=== PATIENT | male | born 1960 | race Caucasian/White ===

== ENCOUNTER → 2017-10-13 | Outpatient (CLI) | payer MEDICARE, BC, OTHER, SELFPAY ==
[~2017-10-13] MED LIST: METHACHOLINE KIT (J7674) INH
== END ==
LOC: M CARPUL 10:11
DX: R06.02 Shortness of breath (principal); R94.2 Abnormal results of pulmonary function studies
CPT/HCPCS: J7674

== ENCOUNTER → 2018-05-07 | Outpatient (CLI) | payer MEDICARE, BC, OTHER | LOC: M SLEEP 19:24 | DX: G47.33 Obstructive sleep apnea (adult) (pediatric) (principal) | CPT/HCPCS: 95810 ==

== ENCOUNTER → 2018-06-13 | Outpatient (CLI) | payer MEDICARE, BC, OTHER ==
--- NOTE | 2018-06-15 11:24 | SLEEPCENT ---
DATE OF PROCEDURE: 06/13/2018 ORDERED BY: Dr. Gómez Nocturnal polysomnography was performed for titration of pressure therapy in this patient with obstructive sleep apnea syndrome and apnea-hypopnea index of 42.5. For testing, the patient was fit with a [employer] [place] View full face mask of medium size and 4 cm of water pressure were applied to the circuit and the lights were extinguished. 8 hours and 25 minutes of data were reviewed. There were 318 minutes of sleep identified. Sleep latency was prolonged at 45.5 minutes. Rapid eye movement (REM) latency was somewhat prolonged at 109 minutes. Sleep architecture was good with 2 REM cycles. There was a period of wake between 12:30 and 1:30, resulting in a mildly reduced sleep efficiency of 63.5%. The electrocardiogram showed a regular rhythm, possibly paced, with frequent ectopy. Average heart rate was 80 beats per minute. Electroencephalogram (EEG) showed normal waveforms for awake and sleep. Respiratory events were fully palliated with C-PAP at a pressure of +5. There was minimal activity in the limb leads and limb movement arousal index was 4.5. IMPRESSION: Obstructive sleep apnea syndrome (G47.33). RECOMMENDATION: Nightly use of pressure therapy at 5 cm of water.
== END ==
LOC: M SLEEP 20:00
PROVIDERS: ATTEND Internal Medicine Pulmonary Disease
DX: G47.33 Obstructive sleep apnea (adult) (pediatric) (principal)

== ENCOUNTER → 2021-04-01 | Outpatient (REF) | payer MEDICARE, BC, OTHER ==
[2021-04-01 19:44] LABS: CREATININE, URINE < 13.0 MG/DL; MALB URINE SIEMENS < 5.0 MG/L
== END ==
LOC: M LAB REF 18:10
PROVIDERS: ATTEND Internal Medicine Endocrinology, Diabetes & Metabolism
DX: E11.65 Type 2 diabetes mellitus with hyperglycemia (principal)

== ENCOUNTER → 2023-06-16 | Outpatient (REF) | payer MEDICARE, BC, OTHER ==
[2023-06-16 18:05] LABS: CREATININE, URINE 16.4 MG/DL; CREATININE,RANDOM URINE 16.4 MG/DL; MALB URINE SIEMENS < 3.0 MG/L; MAU/CREAT RATIO 18.2 MCG/MG (0.0-30.0)
== END ==
LOC: M LAB REF 17:01
PROVIDERS: ATTEND Nurse Practitioner Family
DX: E11.65 Type 2 diabetes mellitus with hyperglycemia (principal)